=== PATIENT | female | born 1990 | race Caucasian/White ===

== ENCOUNTER 2019-12-24 10:10 | Outpatient (CLI) | payer OTHER, SELFPAY ==
[2019-12-24 10:32] VITALS: BMI 51.6
[2019-12-24 11:03] LABS: Hemoglobin 12.2 g/dL (12.0-15.0); Mean Corpuscular Hgb 28.9 pg (27.0-32.0); Mean Corpuscular Volume 87.7 fL (81-99); Mean Platelet Vol. 10.7 fl (6.2-12.0); Platelet Count 192 K/mm3 (150-450); RBC Distribution Width CV 15.6 % (11.6-14.6); RBC Distribution Width SD 48.3 fl (35.1-43.9); Red Blood Count 4.22 M/mm3 (4.2-5.4); White Blood Count 10.5 K/mm3 (4.4-11.0)
[2019-12-24 11:13] LABS: Protein, Urine (Random) 9.8 mg/dL (<11.9); Protein:Creat Ratio 274 mg/g CRE (0-200)
[2019-12-24 11:14] LABS: AST(SGOT) 13 U/L (15-37); Alanine Aminotransfer ALT/SGPT 17 U/L (13-56); Creatinine, Serum 0.67 mg/dL (0.55-1.02); EST Glomerular Filtration Rate 110 mL/min (>60); Est Glom Filt Rate - Afr Amer 133 mL/min (>60); Estimated Creatinine Clearance 137.23 ml/min; Uric Acid 5.3 mg/dL (2.6-6.0)
[2019-12-24] MEDS: Betamethasone/Betamethasone 30 MG/5 ML Vial 12 MG IM (12:10)
--- NOTE | 2020-01-02 16:50 | OB.TRI.NOTE ---
History of Present Illness Date of Service: 12/25/19 Was patient seen by the physician?: No Reason For Visit: R/O PHI Date of Service: 12/25/19 Gestational age: 35 weeks Allergies No Known Allergies Allergy (Verified 12/24/19 11:06) - Pertinent Past Medical History Medical History: Past Medical History (Last Updated 12/26/19 @ 07:[address] Parisa Guerra MD) History of asthma Surgical History: Past Surgical History (Last Updated 12/26/19 @ 07:[address] Parisa Guerra MD) H/O endoscopy Laboratory Studies: Laboratory Tests 12/24/19 12/24/19 12/24/19 Range/Units 10:55 10:55 10:55 WBC 10.5 (4.4-11.0) K/mm3 RBC 4.22 (4.2-5.4) M/mm3 Hgb 12.2 (12.0-15.0) g/dL Hct 37.0 (37-47) % MCV 87.7 (81-99) fL MCH 28.9 (27.0-32.0) pg MCHC 33.0 (32-36) g/dL RDW Std Deviation 48.3 H (35.1-43.9) fl RDW Coeff of Christine 15.6 H (11.6-14.6) % Plt Count 192 (150-450) K/mm3 MPV 10.7 (6.2-12.0) fl Creatinine 0.67 (0.55-1.02) mg/dL Estim Creat Clear Calc 137.23 ml/min Est GFR (MDRD) Af Amer 133 (>60) mL/min Est GFR (MDRD) Non-Af 110 (>60) mL/min Uric Acid 5.3 (2.6-6.0) mg/dL AST 13 L (15-37) U/L ALT 17 (13-56) U/L U Random Total Protein 9.8 (<11.9) mg/dL Urine Creatinine 35.80 (NO RANGE EST.) mg/dL Protein/Creatinin Ratio 274 H (0-200) mg/g CRE NST - FHR Rate Baby A Baseline: normal Variability:: Moderate Accelerations:: 15 x 15 Decelerations:: None NST Reactive:: Yes, Appropriate for gestational age FHR Category:: Category I Uterine Activity:: no regular ctxs - FHR Rate Baby B Baseline: normal Variability:: Moderate Accelerations:: 15 x 15 Decelerations:: None NST Reactive:: Yes, Appropriate for gestational age FHR Category:: Category I Uterine Activity:: no regular ctxs Impression/Plan 35 week, dichorionic/diamniotic twins, gestational hypertensiobn NST reactive x 2 no evidence of preeclampsia f/u in office tomorrow for second betamethasone injection
== END 2019-12-24 12:10 | disposition home or self-care (01) ==
LOC: WPOUT 10:21 → OBT 10:21
PROVIDERS: Referring Provider Obstetrics & Gynecology; Visit Provider Obstetrics & Gynecology
DX: O13.3 Gestational [pregnancy-induced] hypertension without significant proteinuria, third trimester (principal); O30.043 Twin pregnancy, dichorionic/diamniotic, third trimester; Z3A.35 35 weeks gestation of pregnancy
CPT/HCPCS: 36415; 59025; 59050; 82565; 82570; 84156; 84450; 84460; 84550; 85027; 96372; 99218; G0378; J0702

== ENCOUNTER 2019-12-26 07:30 | Inpatient (IN) | payer OTHER, SELFPAY ==
[2019-12-26] VITALS (81 sets, daily range): BP systolic 96–174; BP diastolic 51–99; PULSE 81–115; RESP 16–20; TEMP 36.4–37.6; O2SAT 91–100; BMI 51.9
--- NOTE | 2019-12-26 07:51 | HP.PCM_ITS ---
History Date of Admission: 12/26/19 Final GISSELLE: 02/01/20 Gestational age: 34 Weeks and 5 Days History of this : This is a 29 year-old, G [], P [], at weeks gestational age. Medical History: Medical History (Last Updated 12/26/19 @ 07:[address] Parisa Guerra MD) History of asthma Z87.09 Surgical History: Surgical History (Last Updated 12/26/19 @ 07:[address] Parisa Guerra MD) H/O endoscopy Z98.890 Allergies No Known Allergies Allergy (Verified 12/24/19 11:06) Home Medications: Home Medications Aspirin [Aspir 81] 81 mg PO DAILY 12/24/19 Esomeprazole Mag Trihydrate [Nexium] 1 tab PO DAILY 12/24/19 Ferrous Sulfate [Iron] 325 mg PO DAILY 12/24/19 Ondansetron HCl [Zofran] 4 mg PO PRN PRN 12/24/19 Vit,Calc76/Iron/Folic [Pnv 29-1 Tablet] 1 ea PO DAILY 12/24/19 Smoking Status: Never smoker Alcohol: None Number of Fetus(es): 2 History Past Pregnancies: Past Pregnancies Delivery Date Name GA/ Weeks Outcome Route Wt Infant Sex Labor Length Anesthesia Delivery Location Provider FOB Labs: See [facility] Physical Exam Vitals: Vital Signs Temp Pulse BP Pulse Ox 99.6 F H 112 H 142/84 H 96 12/26/19 07:21 12/26/19 07:46 12/26/19 07:27 12/26/19 07:46 General: Alert, Oriented x3 Abdomen: Soft, Non Tender, Non-Distended, Gravid Neurological: Cranial nerves II-XII grossly intact PROCESS EXCELLENCE MANAGER: Normal external genitalia Estimated gestational size: Appropriate for gestational size Presentation: Cephalic Cervix Dilation (cm): 0 Station: -3 Effacement (%): 50 Assessment/Plan This is a 29 year-old, G1, P0, at 34&5 weeks gestational age. Admit to L&D Severe preE - BP's are severe range. IV labetalol ordered. Start magnesium sulfate. Discussed R/B/A and will proceed with induction. PreE labs ordered. Twin - TAUS confirms vtx/vtx. Counseled on R/B/A of MOD and patient wishes to proceed with induction for vaginal delivery. FWB - s/p BMZx2. FHT's reassuring but not tracing well. COVID testing pending. EFW - based on 12/23 US A = 5lbs and B = 6-11, patient with adequate pelvis Pain - plan for epidural GBS unknown - check rapid GBS Routine care
[2019-12-26] MEDS: Lactated Ringers 1,000 ML 50 ML IV (07:55)
[2019-12-26] MEDS: Magnesium Sulfate 4gm/100mL 4 GM/100 ML IV.SOLN. IV (08:01)
[2019-12-26 08:13] LABS: Hemoglobin 11.7 g/dL (12.0-15.0); Mean Corp Hgb Conc 32.5 g/dL (32-36); Mean Corpuscular Hgb 28.8 pg (27.0-32.0); Mean Corpuscular Volume 88.7 fL (81-99); Mean Platelet Vol. 11.1 fl (6.2-12.0); Platelet Count 220 K/mm3 (150-450); RBC Distribution Width CV 15.2 % (11.6-14.6); RBC Distribution Width SD 48.9 fl (35.1-43.9); Red Blood Count 4.06 M/mm3 (4.2-5.4); White Blood Count 16.4 K/mm3 (4.4-11.0)
[2019-12-26 08:18] LABS: Protein, Urine (Random) 28.4 mg/dL (<11.9); Protein:Creat Ratio 363 mg/g CRE (0-200)
[2019-12-26 08:20] LABS: AST(SGOT) 15 U/L (15-37); Alanine Aminotransfer ALT/SGPT 19 U/L (13-56); EST Glomerular Filtration Rate 104 mL/min (>60); Est Glom Filt Rate - Afr Amer 126 mL/min (>60); Estimated Creatinine Clearance 131.35 ml/min; Uric Acid 6.1 mg/dL (2.6-6.0)
[2019-12-26] MEDS: Magnesium Sulfate 20 GM/500 ML BAG IV ×2 (08:28→16:55)
[2019-12-26 08:45] LABS: Prothrombin Time (Protime)PT. 12.8 SECONDS (11.7-14.9)
[2019-12-26 08:46] LABS: Partial Thromboplast Time 23.8 Seconds (24.1-36.2)
[2019-12-26 09:15] LABS: Probe Check PASS; Specimen Processing Control PASS
[2019-12-26] MEDS: Labetalol 20 MG/4 ML Vial IV (10:30)
[2019-12-26 10:32] LABS: Group B Strep DNA By PCR POSITIVE (Negative); Probe Check PASS
[2019-12-26] MEDS: Sodium Citrate/Citric Acid 30 ML UDC PO (12:00)
--- NOTE | 2019-12-26 13:56 | PCM.PN.BLA ---
Progress Note Delay entry. Unable to trace baby A with heart rate tracing given patient's body habitus and obesity. Unable to start induction with Cytotec given inability to assess a continuous tracing of baby A. Cervix is closed thick and high, and unable to place Barakat. Discussed risk, benefits, alternatives to with the patient. Recommended a section for preeclampsia with severe features, and inability to trace baby A given patient's obesity. Patient consents to a and desires to proceed. STROKE Vital Signs/Narrative: Vital Signs Temp Pulse Resp BP Pulse Ox 12/26/19 11:48 106 H 99 12/26/19 11:43 104 H 99 12/26/19 11:38 101 H 98 12/26/19 11:33 106 H 100 12/26/19 11:28 102 H 164/85 H 97 12/26/19 11:26 104 H 20 H 164/85 H 99 12/26/19 11:05 100 98 12/26/19 11:00 98 98 12/26/19 10:55 100 98 12/26/19 10:50 99 97 12/26/19 10:47 100 144/76 H 12/26/19 10:45 97 97 12/26/19 10:40 99 97 12/26/19 10:35 98 97 12/26/19 10:30 111 H 173/86 H 98 12/26/19 10:29 94 12/26/19 10:24 102 H 96 12/26/19 10:19 101 H 98 12/26/19 10:14 103 H 98 12/26/19 10:11 97.5 F L 101 H 20 H 170/89 H 99 12/26/19 10:10 101 H 170/89 H 12/26/19 10:09 98 12/26/19 10:07 110 H 91 12/26/19 10:04 98 97 12/26/19 09:59 97 98
--- NOTE | 2019-12-26 13:57 | PCM.OPRPT ---
Problem List (1) 34 weeks gestation of Status: Acute (2) Twin Status: Acute (3) Pre-eclampsia, severe Status: Acute (4) Obesity affecting Status: Acute (5) Gestational hypertension Status: Acute Report of Operation Date of Procedure: 12/26/19 Pre-Operative Diagnosis: 34 week gestation, di/di twin , pre-eclampsia with severe featuers, obesity Post-Operative Diagnosis: As above Surgery/Procedure Performed:: PLTCS via pfannenstiel incision Description of Surgical Findings:: Normal appearing uterus, bilateral tubes, bilateral ovaries. Clear fluid x 2. Normal appearing placenta and three-vessel cords. Viable male infants both in cephalic presentation. Type of Anesthesia:: Spinal Special Medications: None Specimen's removed: Placenta Drains: Barakat Estimated Blood Loss (mL): 1,500 Fluids Replaced: 1,500 Description of Procedure: Patient was taken to the operating room where spinal anesthesia was found to be adequate. She was prepped and draped in the dorsal position with a leftward tilt. A Pfannenstiel skin incision was made with a scalpel and this was carried down to the underlying layer of fascia. The fascia was incised in the midline. The fascia was extended laterally using Hernández scissors. The fascia was dissected off of the rectus muscles with a combination of sharp and blunt dissection. The rectus muscles were in the midline. The peritoneum was entered bluntly and extended bluntly with good visualization of the bladder. A bladder flap was created. A low transverse incision was made on the uterus with a scalpel. Both baby A and B were ruptured for clear fluid. Baby A was noted to be in cephalic presentation. Baby A was delivered without any force or delay. A true knot was noted in the cord. The cord was clamped and cut immediately and the infant was handed off to the nursery staff. Baby B was then noted to be in cephalic presentation. Baby B was delivered without any force or delay. The cord was clamped and cut immediately and the infant was handed off to the nursery staff. Placenta was removed with manual extraction. The uterus was cleared of all clot and debris. The uterus was closed in a running locked fashion with Vicryl. A second imbricating layer was performed with Vicryl. Peg was placed over the uterine incision. The uterine incision was noted to be hemostatic. The peritoneum was closed in a running fashion with Vicryl. The fascia was closed with PDS in a running fashion. The subcutaneous space was irrigated and made hemostatic with cautery. Peg was placed in the subcutaneous space. Subcutaneous space was reapproximated using Vicryl. The skin was closed in a subcuticular fashion. Steri-Strips and a dressing were placed. Instrument, sponge, needle counts were correct. The patient was taken to the recovery room in stable condition. Grafts/Implants Used: None - Complications None - Admit VTE Documentation VTE Present on Admission: No VTE Mechan Device Prophylaxis: SCD's Delivery Classification: Scheduled Final GISSELLE: 02/01/20 Gestational age: 34 Weeks and 5 Days Amniotic Membrane Rupture Type: Artificial Amniotic Fluid Description: Clear Drain: Barakat to straight drain Cord Entanglement: None Cord Vessel Description: 3 Vessels Infant Gender: Male Antibiotic Given: Ancef 3 grams IV x1 Pt instructed on risks of surgery: Bleeding, Infection, Need for Future C-Sections, Injury to surrounding structure(s) including bowel and bladder - Admit VTE Documentation VTE Present on Admission: No VTE Mechan Device Prophylaxis: SCD's VTE Pharm Prophylaxis ordered?: Yes
[2019-12-26] MEDS: Oxytocin 30 units/NS 500 ml 30 UNITS/500 ML IV.SOLN 167 UNITS IV (14:00)
[2019-12-26] MEDS: Labetalol 100 MG Tablet PO (14:45)
[2019-12-26] MEDS: Acetaminophen 500 MG Tablet 1000 MG PO ×2 (15:37→21:37)
--- NOTE | 2019-12-26 16:31 | NURSING ---
measured EBL during recovery 350- dr trejo made aware; pt oob up to wheelchair- pt gait steady- pt into SCN to see infants.
[2019-12-26] MEDS: Lactated Ringers 1,000 ML 100 ML IV (16:47)
[2019-12-26] MEDS: oxyCODONE 5 MG Tablet PO ×2 (16:48→21:37)
[2019-12-26] MEDS: Ketorolac 30 MG/ML Syringe IV (19:52)
[2019-12-26] MEDS: Labetalol 200 MG Tablet PO (21:37)
[2019-12-26] MEDS: Ondansetron 4 MG/2 ML Vial IV (21:37)
[2019-12-27] VITALS (16 sets, daily range): BP systolic 113–150; BP diastolic 64–94; PULSE 81–97; RESP 16–20; TEMP 36.3–37; O2SAT 96–99
[2019-12-27] MEDS: Enoxaparin 40 MG/0.4 ML Syringe SC ×3 (01:06→21:59)
[2019-12-27] MEDS: Ketorolac 30 MG/ML Syringe IV ×3 (01:06→13:27)
[2019-12-27] MEDS: Pantoprazole Sodium 20 MG Tablet PO ×2 (01:06→11:58)
[2019-12-27] MEDS: Lactated Ringers 1,000 ML 100 ML IV (02:45)
[2019-12-27] MEDS: oxyCODONE 5 MG Tablet PO ×4 (02:45→18:25)
[2019-12-27] MEDS: Magnesium Sulfate 20 GM/500 ML BAG IV (02:46)
[2019-12-27] MEDS: Acetaminophen 500 MG Tablet 1000 MG PO ×4 (03:29→21:59)
[2019-12-27 05:33] LABS: Hematocrit 28.5 % (37-47); Hemoglobin 9.1 g/dL (12.0-15.0); Mean Corp Hgb Conc 31.9 g/dL (32-36); Mean Corpuscular Hgb 29.1 pg (27.0-32.0); Mean Corpuscular Volume 91.1 fL (81-99); Mean Platelet Vol. 10.8 fl (6.2-12.0); Platelet Count 202 K/mm3 (150-450); RBC Distribution Width CV 15.5 % (11.6-14.6); RBC Distribution Width SD 50.7 fl (35.1-43.9); Red Blood Count 3.13 M/mm3 (4.2-5.4); White Blood Count 15.9 K/mm3 (4.4-11.0)
[2019-12-27 05:53] LABS: ALB/GLOB Ratio 0.6 RATIO (0.9-2.4); AST(SGOT) 14 U/L (15-37); Alanine Aminotransfer ALT/SGPT 17 U/L (13-56); Albumin, Serum 2.1 g/dL (3.2-5.0); Alkaline Phosphatase 111 U/L (45-117); Anion Gap 6 (5-15); BUN 15 mg/dL (7-18); BUN/Creat Ratio 19.3 RATIO (10-20); Chloride 108 mmol/L (98-107); Creatinine, Serum 0.78 mg/dL (0.55-1.02); EST Glomerular Filtration Rate 92 mL/min (>60); Est Glom Filt Rate - Afr Amer 112 mL/min (>60); Estimated Creatinine Clearance 117.87 ml/min; Globulin 3.3 g/dL (2.2-4.2); Glucose 113 mg/dL (74-106); Potassium 4.1 mmol/L (3.5-5.1); Protein, Total 5.4 g/dL (6.4-8.2); Sodium Level 137 mmol/L (136-145)
[2019-12-27] MEDS: 0.9% Saline Lock 10 ML Syringe IV ×3 (07:38→21:59)
[2019-12-27] MEDS: Senna/Docusate Sodium 1 Tablet PO (08:40)
[2019-12-27] MEDS: Labetalol 200 MG Tablet PO ×2 (10:14→21:59)
--- NOTE | 2019-12-27 10:52 | PCM.PN.OB ---
Patient Problems: Active and Suspected Problems (Last Updated 12/26/19 @ 07:[address] Parisa Guerra MD) 34 weeks gestation of (Acute) Twin (Acute) Pre-eclampsia, severe (Acute) Obesity affecting (Acute) Gestational hypertension (Acute) Subjective: Patient denies headache or visual changes. Pain well controlled. No nausea or vomiting. Ambulating. - Physical Exam Vitals/I&O's: Vital Signs Temp Pulse Resp BP Pulse Ox 97.4 F L 92 20 H 150/90 H 99 12/27/19 07:30 12/27/19 10:40 12/27/19 10:40 12/27/19 10:40 12/27/19 10:40 Oxygen Delivery Method Room Air Weight: 168.827 kg Body Mass Index (BMI) 51.9 Intake and Output for Last 24 Hours 12/25/19 12/26/19 12/27/19 23:59 23:59 23:59 Intake Total 5224.20 / 5224.20 3266.67 / 3266.67 Output Total 1420 / 1420 1700 / 1700 Balance 3804.20 / 3804.20 1566.67 / 1566.67 General: Alert, Cooperative, No apparent distress Abdomen: Soft, Non-Distended, Obese - Large overlying pannus, Tender - Mildly Extremities: Edema - 2+ Skin: Incision - Her bandage is clean dry and intact Laboratory Results 12/26/19 07:55: Blood Type O POSITIVE, Antibody Screen NEGATIVE 12/27/19 05:20: WBC 15.9 H, RBC 3.13 L, Hgb 9.1 L, Hct 28.5 L, MCV 91.1, MCH 29.1, MCHC 31.9 L, RDW Std Deviation 50.7 H, RDW Coeff of Christine 15.5 H, Plt Count 202, MPV 10.8 12/27/19 05:20: Sodium 137, Potassium 4.1, Chloride 108 H, Carbon Dioxide 23.0, Anion Gap 6, BUN 15, Creatinine 0.78, Estim Creat Clear Calc 117.87, Est GFR (MDRD) Af Amer 112, Est GFR (MDRD) Non-Af 92, BUN/Creatinine Ratio 19.3, Glucose 113 H, Calcium 8.0 L, Total Bilirubin 0.20, AST 14 L, ALT 17, Alkaline Phosphatase 111, Total Protein 5.4 L, Albumin 2.1 L, Globulin 3.3, Albumin/Globulin Ratio 0.6 L Current Medications Acetaminophen (Tylenol) 1,000 mg PO Q6 [facility] Last Admin: 12/27/19 10:14 Dose: 1,000 mg Documented by: Bisacodyl (Dulcolax) 10 mg RECTAL UD PRN PRN Reason: If no BM Enoxaparin Sodium (Lovenox) 40 mg SC BID [facility] Last Admin: 12/27/19 01:06 Dose: 40 mg Documented by: Hydrocortisone (Hytone) 1 applic TOPICAL TID PRN PRN; Protocol PRN Reason: Discomfort Calcium Gluconate 1 gm/ N/A 10 mls @ 2 mls/min IV X1 PRN PRN Reason: Magnesium Toxicity Magnesium Sulfate (20gm/500ml) 20 gm in 500 mls @ 50 mls/hr IV .Q10H [facility]; Protocol Stop: 12/27/19 12:50 Last Infusion: 12/27/19 10:40 Dose: 2 gm/hr, 50 mls/hr Documented by: Lactated Ringer's () 1,000 mls @ 100 mls/hr IV .Q10H [facility] Last Infusion: 12/27/19 05:25 Dose: 50 mls/hr Documented by: Naloxone HCl 4 mg/ Dextrose 504 mls @ 0 mls/hr IV .Q0M PRN; Protocol PRN Reason: Respiratory depression Ibuprofen (Motrin) 600 mg PO Q6H [facility] Ketorolac Tromethamine (Toradol (Bkc)) 30 mg IV Q6H [facility] Stop: 12/27/19 13:31 Last Admin: 12/27/19 07:38 Dose: 30 mg Documented by: Labetalol HCl (Trandate) 200 mg PO BID [facility] Last Admin: 12/27/19 10:14 Dose: 200 mg Documented by: Methylergonovine Maleate (Methergine) 0.2 mg IM X1 PRN PRN Reason: Uterine Atony Midazolam HCl (Versed) 2 mg IV X1 PRN PRN Reason: Seizure Activity Naloxone HCl (Narcan) 0.02 mg IV Q1M PRN PRN Reason: RR <10 and pt unresponsive Ondansetron HCl (Zofran) 4 mg IV Q4H PRN PRN PRN Reason: Nausea Last Admin: 12/26/19 21:37 Dose: 4 mg Documented by: Oxycodone HCl (Oxyir) 5 - 10 mg PO Q4H PRN PRN PRN Reason: Pain Score 4-10/10 Last Admin: 12/27/19 08:40 Dose: 5 mg Documented by: Pantoprazole Sodium (Protonix) 20 mg PO DAILY [facility] Last Admin: 12/27/19 01:06 Dose: 20 mg Documented by: Prochlorperazine Edisylate (Compazine Iv) 10 mg IV Q6H PRN PRN PRN Reason: NAUSEA Senna/Docusate Sodium (Senokot-S, Olena-Colace) 1 - 2 tablet PO DAILY [facility] Last Admin: 12/27/19 08:40 Dose: 2 tablet Documented by: Simethicone (Mylicon) 80 mg PO [facility] PRN PRN Reason: Indigestion/stomach pain Sodium Chloride () 5 - 15 ml IV UD PRN PRN Reason: SALINE FLUSH Last Admin: 12/27/19 07:38 Dose: 10 ml Documented by: Medical Necessity - Tobacco Use Smoking Status: Former smoker Assessment/Plan All Active Problems (Last Updated 12/26/19 @ 07:[address] Parisa Guerra MD) 34 weeks gestation of (Acute) Twin (Acute) Pre-eclampsia, severe (Acute) Obesity affecting (Acute) Gestational hypertension (Acute) Postoperative day #1 status post primary section for twins, dichorionic diamniotic. Preeclampsia with severe features. Dates are in the special care nursery and doing well overall. Patient is doing well. Blood pressures have been controlled with current medications. Will finish 24 hours of magnesium. Otherwise routine postoperative care.
[2019-12-27] MEDS: Ibuprofen 600 MG Tablet PO (19:42)
[2019-12-27] MEDS: DiphenhydrAMINE 25 MG Capsule PO (23:04)
[2019-12-28] VITALS (9 sets, daily range): BP systolic 120–159; BP diastolic 64–84; PULSE 91–120; RESP 16–20; TEMP 36.3–37.3; O2SAT 98–100
--- NOTE | 2019-12-28 00:06 | NURSING ---
RN in room for hourly rounding. Patient states that she is feeling very anxious, especially when she lays flat. Also states she has chest heaviness and sweating when lying flat. Patient was tearful and stated my anxiety is making me afraid to fall asleep. Vital signs assessed and all WNL, lung sounds clear to auscultation bilaterally, patient performed incentive spirometry, and bleeding was small in amount, fundus 1 below. Called charge nurse Yamilex Snow RN to room for assessment. Results of assessment came back WNL. Patient states she has had increased anxiety over the last 2 weeks before delivery and that she briefly took a medication for anxiety, but felt that it didn't help. Stated she had no history of panic attacks. Stated she would take a medication if it was available to her. Called Manjeet BETANCUR and reviewed assessment. Manjeet BETANCUR ordered 5mg of Ambien to help her sleep and help with anxiety. This RN went to take Ambien into room and patient refused because, I don't want to take a sleeping pill. I'm just going to try again to sleep on my own. AOrr RN
[2019-12-28] MEDS: Ibuprofen 600 MG Tablet PO ×4 (01:36→19:34)
[2019-12-28] MEDS: Acetaminophen 500 MG Tablet 1000 MG PO ×4 (04:03→22:00)
[2019-12-28] MEDS: oxyCODONE 5 MG Tablet PO (07:46)
--- NOTE | 2019-12-28 08:53 | PN.OBGYN_ITS ---
Patient Problems: Active and Suspected Problems (Last Updated 12/26/19 @ 07:[address] Parisa Guerra MD) 34 weeks gestation of (Acute) Twin (Acute) Pre-eclampsia, severe (Acute) Obesity affecting (Acute) Gestational hypertension (Acute) Subjective: Pain is well controlled. Patient is ambulating without difficulty. No headache or visual disturbances. Average lochia. Patient has had flatus and is tolerating regular diet. No bowel movement yet. - Physical Exam Vitals/I&O's: Vital Signs Temp Pulse Resp BP Pulse Ox 97.3 F L 97 20 H 142/73 H 98 12/28/19 07:50 12/28/19 07:50 12/28/19 07:50 12/28/19 07:50 12/28/19 07:50 Oxygen Delivery Method Room Air Weight: 168.827 kg Body Mass Index (BMI) 51.9 Intake and Output for Last 24 Hours 12/26/19 12/27/19 12/28/19 23:59 23:59 23:59 Intake Total 5224.20 / 5224.20 3873.34 / 3873.34 Output Total 1420 / 1420 3100 / 3100 Balance 3804.20 / 3804.20 773.34 / 773.34 General: Alert, Cooperative, No apparent distress Current Medications Acetaminophen (Tylenol) 1,000 mg PO Q6H [facility] Last Admin: 12/28/19 04:03 Dose: 1,000 mg Documented by: Bisacodyl (Dulcolax) 10 mg RECTAL UD PRN PRN Reason: If no BM Enoxaparin Sodium (Lovenox) 40 mg SC BID [facility] Last Admin: 12/27/19 21:59 Dose: 40 mg Documented by: Hydrocortisone (Hytone) 1 applic TOPICAL TID PRN PRN; Protocol PRN Reason: Discomfort Calcium Gluconate 1 gm/ N/A 10 mls @ 2 mls/min IV X1 PRN PRN Reason: Magnesium Toxicity Naloxone HCl 4 mg/ Dextrose 504 mls @ 0 mls/hr IV .Q0M PRN; Protocol PRN Reason: Respiratory depression Ibuprofen (Motrin) 600 mg PO Q6H [facility] Last Admin: 12/28/19 07:42 Dose: 600 mg Documented by: Labetalol HCl (Trandate) 200 mg PO BID [facility] Last Admin: 12/27/19 21:59 Dose: 200 mg Documented by: Methylergonovine Maleate (Methergine) 0.2 mg IM X1 PRN PRN Reason: Uterine Atony Midazolam HCl (Versed) 2 mg IV X1 PRN PRN Reason: Seizure Activity Naloxone HCl (Narcan) 0.02 mg IV Q1M PRN PRN Reason: RR <10 and pt unresponsive Ondansetron HCl (Zofran) 4 mg IV Q4H PRN PRN PRN Reason: Nausea Last Admin: 12/26/19 21:37 Dose: 4 mg Documented by: Oxycodone HCl (Oxyir) 5 - 10 mg PO Q4H PRN PRN PRN Reason: Pain Score 4-10/10 Last Admin: 12/28/19 07:46 Dose: 5 mg Documented by: Pantoprazole Sodium (Protonix) 20 mg PO DAILY [facility] Last Admin: 12/27/19 11:58 Dose: 20 mg Documented by: Prochlorperazine Edisylate (Compazine Iv) 10 mg IV Q6H PRN PRN PRN Reason: NAUSEA Senna/Docusate Sodium (Senokot-S, Olena-Colace) 1 - 2 tablet PO DAILY [facility] Last Admin: 12/27/19 08:40 Dose: 2 tablet Documented by: Simethicone (Mylicon) 80 mg PO HS PRN PRN Reason: Indigestion/stomach pain Last Admin: 12/27/19 19:45 Dose: 80 mg Documented by: Sodium Chloride () 5 - 15 ml IV UD PRN PRN Reason: SALINE FLUSH Last Admin: 12/27/19 21:59 Dose: 10 ml Documented by: Medical Necessity - Tobacco Use Smoking Status: Former smoker Assessment/Plan All Active Problems (Last Updated 12/26/19 @ 07:[address] Parisa Guerra MD) 34 weeks gestation of (Acute) Twin (Acute) Pre-eclampsia, severe (Acute) Obesity affecting (Acute) Gestational hypertension (Acute) Postoperative day #2 status post primary section for dichorionic diamniotic twins with unfavorable cervix, and preeclampsia severe features. Pressures are controlled with labetalol. Patient is doing well. Neonates are in special care nursery. Monitor patient's symptoms and blood pressures. Encouraged ambulation. Continue regular diet.
[2019-12-28] MEDS: Labetalol 200 MG Tablet PO ×2 (10:54→21:56)
[2019-12-28] MEDS: Enoxaparin 40 MG/0.4 ML Syringe SC ×2 (10:54→21:59)
[2019-12-28] MEDS: Senna/Docusate Sodium 1 Tablet PO (10:54)
[2019-12-28] MEDS: Pantoprazole Sodium 20 MG Tablet PO (10:55)
[2019-12-29] VITALS (7 sets, daily range): BP systolic 132–157; BP diastolic 65–92; PULSE 86–98; RESP 18; TEMP 36.4–36.9; O2SAT 98
[2019-12-29] MEDS: Ibuprofen 600 MG Tablet PO ×4 (01:35→18:59)
[2019-12-29] MEDS: Acetaminophen 500 MG Tablet 1000 MG PO ×3 (04:09→18:59)
[2019-12-29] MEDS: Labetalol 200 MG Tablet PO ×3 (06:03→21:44)
[2019-12-29] MEDS: Enoxaparin 40 MG/0.4 ML Syringe SC ×2 (10:44→22:58)
[2019-12-29] MEDS: Pantoprazole Sodium 20 MG Tablet PO (10:45)
[2019-12-29] MEDS: Senna/Docusate Sodium 1 Tablet PO (10:45)
--- NOTE | 2019-12-29 10:52 | PCM.PN.OB ---
Patient Problems: Active and Suspected Problems (Last Updated 12/26/19 @ 07:[address] Parisa Guerra MD) 34 weeks gestation of (Acute) Twin (Acute) Pre-eclampsia, severe (Acute) Obesity affecting (Acute) Gestational hypertension (Acute) Subjective: Pain is well controlled. No nausea or vomiting. Ambulating and tolerating regular diet. Positive bowel movement. Patient is tearful when I arrived in the room. States she is very anxious, waking up frequently because of her anxiety. Also feels very down and depressed. Somewhat overwhelmed. Does like she will do better at home where she has more family support. Has been struggling with anxiety over the past couple of months but does feel like it is worsened acutely. - Physical Exam Vitals/I&O's: Vital Signs Temp Pulse Resp BP Pulse Ox 97.5 F L 86 18 157/75 H 99 12/29/19 07:30 12/29/19 07:30 12/29/19 07:30 12/29/19 07:30 12/28/19 19:27 Oxygen Delivery Method Room Air Weight: 168.827 kg Body Mass Index (BMI) 51.9 Intake and Output for Last 24 Hours 12/27/19 12/28/19 12/29/19 23:59 23:59 23:59 Intake Total 3873.34 / 3873.34 Output Total 3100 / 3100 Balance 773.34 / 773.34 General: Alert, Cooperative, - - tearful Cardiovascular: Regular rate Abdomen: Soft, Tender - appropriately, - - pannus is large Extremities: Edema - 2+ Skin: Incision - bandage is clean, dry and intact Current Medications Acetaminophen (Tylenol) 1,000 mg PO Q6H [facility] Last Admin: 12/29/19 04:09 Dose: 1,000 mg Documented by: Bisacodyl (Dulcolax) 10 mg RECTAL UD PRN PRN Reason: If no BM Enoxaparin Sodium (Lovenox) 40 mg SC BID [facility] Last Admin: 12/29/19 10:44 Dose: 40 mg Documented by: Hydrocortisone (Hytone) 1 applic TOPICAL TID PRN PRN; Protocol PRN Reason: Discomfort Calcium Gluconate 1 gm/ N/A 10 mls @ 2 mls/min IV X1 PRN PRN Reason: Magnesium Toxicity Naloxone HCl 4 mg/ Dextrose 504 mls @ 0 mls/hr IV .Q0M PRN; Protocol PRN Reason: Respiratory depression Ibuprofen (Motrin) 600 mg PO Q6H [facility] Last Admin: 12/29/19 07:34 Dose: 600 mg Documented by: Labetalol HCl (Trandate) 200 mg PO TID [facility] Last Admin: 12/29/19 06:03 Dose: 200 mg Documented by: Methylergonovine Maleate (Methergine) 0.2 mg IM X1 PRN PRN Reason: Uterine Atony Midazolam HCl (Versed) 2 mg IV X1 PRN PRN Reason: Seizure Activity Naloxone HCl (Narcan) 0.02 mg IV Q1M PRN PRN Reason: RR <10 and pt unresponsive Ondansetron HCl (Zofran) 4 mg IV Q4H PRN PRN PRN Reason: Nausea Last Admin: 12/26/19 21:37 Dose: 4 mg Documented by: Oxycodone HCl (Oxyir) 5 - 10 mg PO Q4H PRN PRN PRN Reason: Pain Score 4-10/10 Last Admin: 12/28/19 07:46 Dose: 5 mg Documented by: Pantoprazole Sodium (Protonix) 20 mg PO DAILY [facility] Last Admin: 12/29/19 10:45 Dose: 20 mg Documented by: Prochlorperazine Edisylate (Compazine Iv) 10 mg IV Q6H PRN PRN PRN Reason: NAUSEA Senna/Docusate Sodium (Senokot-S, Olena-Colace) 1 - 2 tablet PO DAILY [facility] Last Admin: 12/29/19 10:45 Dose: 1 tablet Documented by: Simethicone (Mylicon) 80 mg PO [facility] PRN PRN Reason: Indigestion/stomach pain Last Admin: 12/28/19 16:44 Dose: 80 mg Documented by: Sodium Chloride () 5 - 15 ml IV UD PRN PRN Reason: SALINE FLUSH Last Admin: 12/27/19 21:59 Dose: 10 ml Documented by: Medical Necessity - Tobacco Use Smoking Status: Former smoker Assessment/Plan All Active Problems (Last Updated 12/26/19 @ 07:[address] Parisa Guerra MD) 34 weeks gestation of (Acute) Twin (Acute) Pre-eclampsia, severe (Acute) Obesity affecting (Acute) Gestational hypertension (Acute) POD#3 s/p primary c/s for di/di twins, preeclampsia w/ severe features anxiety and depression- start lexapro. will give ambien prn to help w/ sleep as well as patient is exhausted. supportive. Encouraged may need counseling as well neonates doing well in SCN monitor BP, may need to increase labetalol or add nifidipine
[2019-12-29] MEDS: Escitalopram Oxalate 10 MG Tablet PO (15:25)
[2019-12-29] MEDS: Zolpidem Tartrate 5 MG Tablet PO (22:59)
[2019-12-30] VITALS (7 sets, daily range): BP systolic 130–161; BP diastolic 66–91; PULSE 83–91; RESP 16–18; TEMP 36.7–37.2; O2SAT 95
[2019-12-30] MEDS: Ibuprofen 600 MG Tablet PO ×2 (01:30→07:41)
[2019-12-30] MEDS: Acetaminophen 500 MG Tablet 1000 MG PO ×2 (04:36→11:33)
[2019-12-30] MEDS: Labetalol 200 MG Tablet PO (06:04)
--- NOTE | 2019-12-30 09:36 | PN.OBGYN_ITS ---
Patient Problems: Active and Suspected Problems (Last Updated 12/26/19 @ 07:[address] Parisa Guerra MD) 34 weeks gestation of (Acute) Twin (Acute) Pre-eclampsia, severe (Acute) Obesity affecting (Acute) Gestational hypertension (Acute) Subjective: Pain well controlled, average lochia. Denies ALLEN/epigastric pain. - Physical Exam Vitals/I&O's: Vital Signs Temp Pulse Resp BP Pulse Ox 98.0 F 83 16 149/66 H 98 12/30/19 07:42 12/30/19 07:42 12/30/19 07:42 12/30/19 07:44 12/29/19 19:27 Oxygen Delivery Method Room Air Weight: 168.827 kg Body Mass Index (BMI) 51.9 General: Alert, Cooperative, No apparent distress Abdomen: Soft, Non-Distended, Obese - w/ large pannus Extremities: Edema - 2+ Skin: Incision - bandage is clean, dry and intact Neurological: Cranial nerves II-XII grossly intact Current Medications Acetaminophen (Tylenol) 1,000 mg PO Q6H [facility] Last Admin: 12/30/19 04:36 Dose: 1,000 mg Documented by: Bisacodyl (Dulcolax) 10 mg RECTAL UD PRN PRN Reason: If no BM Enoxaparin Sodium (Lovenox) 40 mg SC BID [facility] Last Admin: 12/29/19 22:58 Dose: 40 mg Documented by: Escitalopram Oxalate (Lexapro) 10 mg PO DAILY [facility] Last Admin: 12/29/19 15:25 Dose: 10 mg Documented by: Hydrocortisone (Hytone) 1 applic TOPICAL TID PRN PRN; Protocol PRN Reason: Discomfort Calcium Gluconate 1 gm/ N/A 10 mls @ 2 mls/min IV X1 PRN PRN Reason: Magnesium Toxicity Naloxone HCl 4 mg/ Dextrose 504 mls @ 0 mls/hr IV .Q0M PRN; Protocol PRN Reason: Respiratory depression Ibuprofen (Motrin) 600 mg PO Q6H [facility] Last Admin: 12/30/19 07:41 Dose: 600 mg Documented by: Labetalol HCl (Trandate) 200 mg PO TID [facility] Last Admin: 12/30/19 06:04 Dose: 200 mg Documented by: Methylergonovine Maleate (Methergine) 0.2 mg IM X1 PRN PRN Reason: Uterine Atony Midazolam HCl (Versed) 2 mg IV X1 PRN PRN Reason: Seizure Activity Naloxone HCl (Narcan) 0.02 mg IV Q1M PRN PRN Reason: RR <10 and pt unresponsive Ondansetron HCl (Zofran) 4 mg IV Q4H PRN PRN PRN Reason: Nausea Last Admin: 12/26/19 21:37 Dose: 4 mg Documented by: Oxycodone HCl (Oxyir) 5 - 10 mg PO Q4H PRN PRN PRN Reason: Pain Score 4-10/10 Last Admin: 12/28/19 07:46 Dose: 5 mg Documented by: Pantoprazole Sodium (Protonix) 20 mg PO DAILY [facility] Last Admin: 12/29/19 10:45 Dose: 20 mg Documented by: Prochlorperazine Edisylate (Compazine Iv) 10 mg IV Q6H PRN PRN PRN Reason: NAUSEA Senna/Docusate Sodium (Senokot-S, Olena-Colace) 1 - 2 tablet PO DAILY [facility] Last Admin: 12/29/19 10:45 Dose: 1 tablet Documented by: Simethicone (Mylicon) 80 mg PO PCHS PRN PRN Reason: Indigestion/stomach pain Last Admin: 12/28/19 16:44 Dose: 80 mg Documented by: Sodium Chloride () 5 - 15 ml IV UD PRN PRN Reason: SALINE FLUSH Last Admin: 12/27/19 21:59 Dose: 10 ml Documented by: Zolpidem Tartrate (Ambien (Generic)) 5 mg PO QHS PRN PRN PRN Reason: INSOMNIA Last Admin: 12/29/19 22:59 Dose: 5 mg Documented by: Medical Necessity - Tobacco Use Smoking Status: Former smoker Assessment/Plan All Active Problems (Last Updated 12/26/19 @ 07:[address] Parisa Guerra MD) 34 weeks gestation of (Acute) Twin (Acute) Pre-eclampsia, severe (Acute) Obesity affecting (Acute) Gestational hypertension (Acute) POD#4 s/p primary c/s for twins di/di twins, preeclampsia with severe features d/c home today cont. labetaolol f/u this week for BP and incision check call if any severe preeclampsia symptoms infants doing well in [facility]
--- NOTE | 2019-12-30 09:49 | DS.PCM_ITS ---
Discharge Date and Diagnosis - Problem List Patient Problems: Active and Suspected Problems (Last Updated 12/26/19 @ 07:[address] Parisa Guerra MD) 34 weeks gestation of (Acute) Twin (Acute) Pre-eclampsia, severe (Acute) Obesity affecting (Acute) Gestational hypertension (Acute) Date of Admission: 12/26/19 Date of Discharge: 12/30/19 - Primary Discharge Diagnosis Acute Problems: Active Problems (Last Updated 12/26/19 @ 07:[address] Parisa Guerra MD) 34 weeks gestation of (Acute) Twin (Acute) Pre-eclampsia, severe (Acute) Obesity affecting (Acute) Gestational hypertension (Acute) Hospital Course and Treatment Operations: - - primary LTCS via [facility] Procedures: None Summary of Care Provided: The patient is a 29 year old nulliparous female was admitted at 34 weeks gestation with preeclampsia with severe features. The hypertensive protocol was initiated. She was put on magnesium prophylaxis. The size of the patient's pannus, we are unable to adequately monitor baby A in order to initiate an induction. This along with her severe features, and an unfavorable cervix prohibiting rupture of membranes and placement of a scalp electrode made induction unreasonable. Patient was then consented for primary section. This was performed without difficulty. Patient had mild acute blood loss anemia appropriate for blood loss during surgery. By postoperative day #4 her blood pressures were stable and she was sent home on p.o. labetalol with routine instructions and prescriptions otherwise. She is to call for any symptoms of severe preeclampsia or any other concerns. Patient also had some significant anxiety before delivery this seems to be somewhat worse after delivery. She was started on Lexapro. She is to follow-up within 5 to 7 days for blood pressure check and incision check. [] Patient Problems: Active and Suspected Problems (Last Updated 12/26/19 @ 07:[address] Parisa Guerra MD) 34 weeks gestation of (Acute) Twin (Acute) Pre-eclampsia, severe (Acute) Obesity affecting (Acute) Gestational hypertension (Acute) - Physical Exam Vitals/I&O's: Vital Signs Temp Pulse Resp BP Pulse Ox 98.0 F 83 16 149/66 H 98 12/30/19 07:42 12/30/19 07:42 12/30/19 07:42 12/30/19 07:44 12/29/19 19:27 Oxygen Delivery Method Room Air Weight: 168.827 kg Body Mass Index (BMI) 51.9 Current Medications Acetaminophen (Tylenol) 1,000 mg PO Q6H [facility] Last Admin: 12/30/19 04:36 Dose: 1,000 mg Documented by: Bisacodyl (Dulcolax) 10 mg RECTAL UD PRN PRN Reason: If no BM Enoxaparin Sodium (Lovenox) 40 mg SC BID [facility] Last Admin: 12/29/19 22:58 Dose: 40 mg Documented by: Escitalopram Oxalate (Lexapro) 10 mg PO DAILY [facility] Last Admin: 12/29/19 15:25 Dose: 10 mg Documented by: Hydrocortisone (Hytone) 1 applic TOPICAL TID PRN PRN; Protocol PRN Reason: Discomfort Calcium Gluconate 1 gm/ N/A 10 mls @ 2 mls/min IV X1 PRN PRN Reason: Magnesium Toxicity Naloxone HCl 4 mg/ Dextrose 504 mls @ 0 mls/hr IV .Q0M PRN; Protocol PRN Reason: Respiratory depression Ibuprofen (Motrin) 600 mg PO Q6H [facility] Last Admin: 12/30/19 07:41 Dose: 600 mg Documented by: Labetalol HCl (Trandate) 200 mg PO TID [facility] Last Admin: 12/30/19 06:04 Dose: 200 mg Documented by: Methylergonovine Maleate (Methergine) 0.2 mg IM X1 PRN PRN Reason: Uterine Atony Midazolam HCl (Versed) 2 mg IV X1 PRN PRN Reason: Seizure Activity Naloxone HCl (Narcan) 0.02 mg IV Q1M PRN PRN Reason: RR <10 and pt unresponsive Ondansetron HCl (Zofran) 4 mg IV Q4H PRN PRN PRN Reason: Nausea Last Admin: 12/26/19 21:37 Dose: 4 mg Documented by: Oxycodone HCl (Oxyir) 5 - 10 mg PO Q4H PRN PRN PRN Reason: Pain Score 4-10/10 Last Admin: 12/28/19 07:46 Dose: 5 mg Documented by: Pantoprazole Sodium (Protonix) 20 mg PO DAILY [facility] Last Admin: 12/29/19 10:45 Dose: 20 mg Documented by: Prochlorperazine Edisylate (Compazine Iv) 10 mg IV Q6H PRN PRN PRN Reason: NAUSEA Senna/Docusate Sodium (Senokot-S, Olena-Colace) 1 - 2 tablet PO DAILY [facility] Last Admin: 12/29/19 10:45 Dose: 1 tablet Documented by: Simethicone (Mylicon) 80 mg PO PCHS PRN PRN Reason: Indigestion/stomach pain Last Admin: 12/28/19 16:44 Dose: 80 mg Documented by: Sodium Chloride () 5 - 15 ml IV UD PRN PRN Reason: SALINE FLUSH Last Admin: 12/27/19 21:59 Dose: 10 ml Documented by: Zolpidem Tartrate (Ambien (Generic)) 5 mg PO QHS PRN PRN PRN Reason: INSOMNIA Last Admin: 12/29/19 22:59 Dose: 5 mg Documented by: Home Medications: Medications to take at Discharge Vit,Calc76/Iron/Folic [Pnv 29-1 Tablet] 1 ea PO DAILY 12/24/19 Escitalopram Oxalate [Lexapro] 10 mg PO DAILY #30 tab 12/29/19 Ibuprofen [Motrin] 600 mg PO Q6H PRN #60 tab 12/29/19 Labetalol [Trandate (Beta Mariella)] 200 mg PO TID #90 tab 12/29/19 Oxycodone [Oxyir] 5 mg PO Q6H PRN PRN 7 Days #20 tab 12/29/19 Following Prescrptions Were Given to Patient: Escitalopram Oxalate [Lexapro] 10 mg PO DAILY #30 tab Transmission Status: Received by [facility] #[id number] Ibuprofen [Motrin] 600 mg PO Q6H PRN #60 tab PRN Reason: Pain Transmission Status: Received by [facility] #[id number] Oxycodone [Oxyir] 5 mg PO Q6H PRN PRN 7 Days #20 tab PRN Reason: severe pain Transmission Status: Received by [facility] #[id number] Labetalol [Trandate (Beta Mariella)] 200 mg PO TID #90 tab Transmission Status: Received by [facility] #[id number] Primary Care Physician: Care Physician,No Primary [Primary Care Provider] - Medical Necessity - Tobacco Use Smoking Status: Former smoker Meaningful Use Info Meaningful Use Diagnoses (Choose all that apply): None applicable
--- NOTE | 2019-12-30 09:54 | DCINST_ITS ---
Discharge Diet: No Restrictions Discharge Activity: Return to Normal Activity, May Not Drive - for 2 weeks, May not drive while taking narcotic pain medications., May Shower, May Take a Tub Bath - in 7 days. May resume sexual activity in: 4-6 weeks Lifting Restrictions: 20 pounds Additional Activity Instructions:: Nothing in the vagina for 4-6 weeks. You may return to work/school in 6 weeks. Call your doctor if your incision/area has: Continuous Slow Oozing, Sudden Increased Bleeding, Increased Pain/ Swelling, Increased Redness, Foul Smelling Discharge Call your doctor if you observe: Fever of 101 or Higher, Using more than one pad per hour - for 2 hours Suture Line Care: Avoid Pulling/Pushing, Avoid Pinching/Bending Cleanse incision/area with: Keep Dressing Clean & Dry Additional Instructions: If you experience any of the following, contact your healthcare provider. * Bleeding that soaks a pad every hour for 2 hours * Fever 100.4 or higher * Unrelieved incision or abdominal pain * Swelling, redness, discharge or bleeding from your incision or episiotomy site * Your incision begins to separate * Problems urinating (including inability to urinate or burning while urinating). * Visual changes * Severe headache * Flu-like symptoms * Pain or redness in one of both of your breasts * Pain, warmth, tenderness or swelling in your legs, especially the calf area * Frequent nausea and vomiting * Symptoms of depression or anxiety If you experience any of the following, call 911 or go to the nearest Emergency Room. * Chest pain * Problems breathing * Seizure activity * Partial or complete paralysis of a body part, slurred speech, weakness or drooping of the face, or a sudden inability to walk or hold your balance Allergies/Adverse Reactions: Allergies No Known Allergies Allergy (Verified 12/24/19 11:06) Medications to take at Discharge Vit,Calc76/Iron/Folic [Pnv 29-1 Tablet] 1 ea PO DAILY 12/24/19 Escitalopram Oxalate [Lexapro] 10 mg PO DAILY #30 tab 12/29/19 Ibuprofen [Motrin] 600 mg PO Q6H PRN #60 tab 12/29/19 Labetalol [Trandate (Beta Mariella)] 200 mg PO TID #90 tab 12/29/19 Oxycodone [Oxyir] 5 mg PO Q6H PRN PRN 7 Days #20 tab 12/29/19 The following prescriptions were given: Escitalopram Oxalate [Lexapro] 10 mg PO DAILY #30 tab Transmission Status: Received by [facility] #[id number] Ibuprofen [Motrin] 600 mg PO Q6H PRN #60 tab PRN Reason: Pain Transmission Status: Received by [facility] #[id number] Oxycodone [Oxyir] 5 mg PO Q6H PRN PRN 7 Days #20 tab PRN Reason: severe pain Transmission Status: Received by [facility] #[id number] Labetalol [Trandate (Beta Mariella)] 200 mg PO TID #90 tab Transmission Status: Received by [facility] #[id number] Follow-Up: Call to make an appointment with your doctor for an incision check in 1-2 weeks. You will also need a 6 week post- follow up appointment. Test results from this visit will be discussed in further detail at your follow- up appointment, if applicable. Please Follow Up With: Mima Mascorro MD - Call to make an appointment for an incision check in 1-2 [phone] When: You will need a post check in 6 weeks. Primary Care Physician: Care Physician,No Primary [Primary Care Provider] -
[2019-12-30] MEDS: Enoxaparin 40 MG/0.4 ML Syringe SC (11:32)
[2019-12-30] MEDS: Senna/Docusate Sodium 1 Tablet PO (11:34)
[2019-12-30] MEDS: Escitalopram Oxalate 10 MG Tablet PO (11:34)
--- NOTE | 2019-12-30 12:43 | NURSING ---
this nurse spoke to regarding blood pressures at time of discharge. gave a new order for trandate 300mg po TID. I discussed this with the pt and her pt states she understands discharge inst and the new order.
[2019-12-30] MEDS: Labetalol 200 MG Tablet 300 MG PO (13:21)
[2019-12-30] MEDS: Pantoprazole Sodium 20 MG Tablet PO (13:21)
== END 2019-12-30 13:00 | disposition home or self-care (01) | DRG 788 ==
LOC: WPOUT 07:34 → WP 07:34
PROVIDERS: Obstetrics & Gynecology; Admitting Provider Obstetrics & Gynecology; Referring Provider Obstetrics & Gynecology; Visit Provider Obstetrics & Gynecology
DX: O69.2XX1 Labor and delivery complicated by other cord entanglement, with compression, fetus 1 (principal); O14.14 Severe pre-eclampsia complicating childbirth; O99.214 Obesity complicating childbirth; E66.9 Obesity, unspecified; O99.344 Other mental disorders complicating childbirth; Z3A.34 34 weeks gestation of pregnancy; Z37.2 Twins, both liveborn; O30.043 Twin pregnancy, dichorionic/diamniotic, third trimester
CPT/HCPCS: 59025; 59050; 80053; 82565; 82570; 84156; 84450; 84460; 84550; 85027; 85610; 85730; 86850; 86900; 86901; 87635; 87653; 99218; G2023; J7120; A4216; G0378; J2405; U0003

== ENCOUNTER 2020-04-04 12:13 | Day surgery (SDC) | payer OTHER, SELFPAY ==
[2019-12-26 07:27] VITALS: BMI 51.9
[2020-04-04] VITALS (10 sets, daily range): BP systolic 115–154; BP diastolic 68–95; PULSE 82–108; RESP 14–18; TEMP 35.9–37.1; O2SAT 91–100; BMI 44.7; BMI 45.6
--- NOTE | 2020-04-04 12:43 | US_ITS ---
STUDY: ABDOMINAL ULTRASOUND - RIGHT UPPER QUADRANT REASON FOR VISIT: Female, 29 years old NAUSEA, VOMITING WITHIN 15 MINS AFTER EATING X 4 WEEKS TECHNIQUE: Ultrasound evaluation of the right upper quadrant was performed with real-time and static olson-scale imaging. TECHNICAL QUALITY: Adequate. COMPARISON: None. FINDINGS: Liver: The liver is enlarged and measures 22.2 cm. There is increased echogenicity consistent with fatty infiltration. The bile ducts are minimally dilated. There is hepatic color flow. The direction of portal flow is hepatopetal. There is no demonstrated mass lesion. Gallbladder: Normal distended gallbladder. The gallbladder wall measures 3.0 mm. There is a negative sonographic Ragland''s sign. There is no pericholecystic fluid. There are multiple echogenic structures within the gallbladder, consistent with multiple gallstones. Sludge is also seen within the gallbladder lumen. Common Bile Duct (C.B.D.): The common bile duct is dilated and measures 12.5 mm. I cannot rule out a distal common bile duct stone. Pancreas: Normal size of the head, body and tail of the pancreas. There is normal echogenicity of the pancreas. There is no demonstrated pancreatic mass or cyst. Right Kidney: Normal size of the right kidney. The right kidney measures 11.4 cm x 6.4 cm x 5.9 cm. Normal renal cortex. The right cortex measures 1.8 cm. There is no demonstrated renal mass or cyst. There is no right hydronephrosis. US/Gallbladder IMPRESSION: Hepatomegaly and diffuse fatty infiltration of the liver. Multiple small gallstones with dilated common bile duct. Electronically Signed: Danilo Noonan, at 14:01 EDT , Service support ,
[2020-04-04] MEDS: 0.9% Normal Saline 1,000 ML 1000 ML IV (12:50)
[2020-04-04] MEDS: Ondansetron 4 MG/2 ML Vial IV ×3 (12:50→21:19)
--- NOTE | 2020-04-04 13:15 | ED.VISSUMM ---
- ER Visit Summary Date of Service: 04/04/20 Chief Complaint: Right scapular pain History of Present Illness: The patient is a 29 F who presents with right scapular pain that has been waxing and waning over the past 4 days. Patient describes the pain as throbbing. Patient states it is worse after eating. Patient states approximately 15 to 20 minutes after eating her pain gets worse. Patient describes it as throbbing. Patient states it is worse in her right scapular area. Patient denies any fevers or chills. Patient admits to some nausea and vomiting. Patient denies any dysuria or hematuria. Patient denies any other back or neck pain. Physical Examination: Vital signs are stable. Patient is afebrile. Patient is in no acute distress. Oral mucosa is pink and moist. Neck is supple. Trachea is midline. There is no JVD noted. Heart was regular rate and rhythm. Lungs are clear and equal bilaterally. Abdomen is soft. Bowel sounds are normal. There is no tenderness. There is no rebound or guarding noted. There is no Ragland sign noted. There is no scapular pain with palpation of the right upper quadrant. Skin is warm dry. Cranial nerves II through XII are intact. There are no focal motor or sensory deficits noted. Extremities are intact. There is no calf tenderness or edema. Test Results: CBC shows normal white blood cell count of 6.8. Comprehensive metabolic profile shows a total bilirubin of 5.3, alk phos of 375, ALT of 403 and AST of 236. Lipase was normal. Urinalysis does not show any evidence of urinary tract infection. Serum hCG was negative. Right upper quadrant ultrasound was obtained. There are multiple gallstones and sludge. The gallbladder wall is 3.0 mm. The common bile duct is dilated at 12.5 mm. A distal common bile duct stone cannot be ruled out. This was interpreted by the radiologist and reviewed by myself. Emergency Department Course and Treatment: Patient was given IV fluids. Patient was given a dose of Zofran initially. Patient was still having pain and nausea. Patient was given a dose of morphine and Zofran. Case was discussed with Dr. Doug Spicer. He will take the patient to surgery tonight. He wanted the patient to remain n.p.o. Patient understood and was agreeable with the plan. All questions were answered. Disposition: Admit to hospital Impression: 1. Acute cholecystitis 2. Choledocholithiasis This note was generated with [employer] dictation software. It may contain incorrect words, spelling, and punctuation that were not noted in review of the chart prior to signing ED Disposition - Plan for ED Patient: Disposition: Acute Care Hospital [facility] Diagnosis: Acute cholecystitis due to biliary calculus, Choledocholithiasis Referrals: Care Physician,No Primary [NON-STAFF] -
[2020-04-04 13:24] LABS: Absolute Neutrophil Count 4.9 X10^3/uL (2.0-7.7); Basophil# 0.04 X10^3/uL; Basophil% 0.6 % (0-1); Hematocrit 40.5 % (37-47); Hemoglobin 12.4 g/dL (12.0-15.0); Lymphocyte % 16.3 % (19-41); Mean Corp Hgb Conc 30.6 g/dL (32-36); Mean Corpuscular Hgb 24.6 pg (27.0-32.0); Mean Corpuscular Volume 80.4 fL (81-99); Mean Platelet Vol. 10.8 fl (6.2-12.0); Monocyte# 0.51 X10^3/uL; Monocyte% 7.5 % (0-10); NRBC Flagged by Analyzer 0 % (0-5); Neutrophil # 4.88 X10^3/uL (2.7-7.7); Neutrophil % 72.2 % (47-70); Platelet Count 298 K/mm3 (150-450); Red Blood Count 5.04 M/mm3 (4.2-5.4); White Blood Count 6.8 K/mm3 (4.4-11.0)
[2020-04-04 13:25] LABS: ALB/GLOB Ratio 0.8 RATIO (0.9-2.4); AST(SGOT) 236 U/L (15-37); Alanine Aminotransfer ALT/SGPT 403 U/L (13-56); Albumin, Serum 3.7 g/dL (3.2-5.0); Alkaline Phosphatase 375 U/L (45-117); Anion Gap 5 (5-15); BUN 11 mg/dL (7-18); BUN/Creat Ratio 13.6 RATIO (10-20); Calcium,Total 10.2 mg/dL (8.5-10.1); Chloride 109 mmol/L (98-107); Creatinine, Serum 0.81 mg/dL (0.55-1.02); EST Glomerular Filtration Rate 88 mL/min (>60); Est Glom Filt Rate - Afr Amer 106 mL/min (>60); Estimated Creatinine Clearance 113.51 ml/min; Globulin 4.9 g/dL (2.2-4.2); Glucose 96 mg/dL (74-106); Lipase 130 U/L (73-393); Potassium 3.5 mmol/L (3.5-5.1); Protein, Total 8.6 g/dL (6.4-8.2); Sodium Level 140 mmol/L (136-145)
[2020-04-04 13:27] LABS: Mucous, Urine 0 SEEN /hpf (<or=2+); Red Blood Cells-Urine 0 SEEN /hpf (0-5)
[2020-04-04 13:29] LABS: Color, Urine Amber (Yellow); Glucose, Dipstick Normal (Normal); Ketone-Dipstick 15 mg/dl (Negative); Leukocyte Esterase-Dipstick 100 /ul (Negative); Nitrite-Dipstick Positive (Negative); Occult Blood-Urine 10 /ul (Negative); Protein-Dipstick 15 mg/dl (Negative); Urine Clarity Clear (Clear); Urine Urobilinogen 8 mg/dl (Normal)
[2020-04-04 13:29] LABS: Internal QC Validated? YES +Cl - CLEAR BKGD; Pregnancy, Serum, hCG Quali. NEGATIVE Negative
[2020-04-04 13:30] LABS: Urine Bilirubin Dipstick 6 mg/dL (Negative)
[2020-04-04 13:39] LABS: Bacteria RARE /hpf (None Seen); Squamous Epithelial Cells - UA 5-10 SEEN /hpf (5-10); White Blood Cells 0-5 SEEN /hpf (0-5)
[2020-04-04] MEDS: Morphine 4 MG/ML Syringe IV (14:12)
--- NOTE | 2020-04-04 15:04 | RAD_ITS ---
CLINICAL HISTORY: Female, 29 years old. Abdominal pain PROCEDURE: CHOLANGIOGRAM - intraoperative FLUOROSCOPY TIME (if supplied): (190 seconds) minutes/seconds TECHNIQUE: (All elements of maximal sterile barrier technique followed, including US elements as applicable) 190 seconds of fluoroscopy of the abdomen was utilized and operating room during Intraop Cholangiogram and 8 images made of for interpretation. FINDINGS: A cannula seen within the cystic duct remnant. Obstruction is seen at the ampulla. This was treated with balloon sphincterotomy. RAD/Cholangiogram/ O R,Initial IMPRESSION: Obstruction at the ampulla treated with balloon sphincterotomy. Electronically Signed: Wild Arroyo MD at 9:18 EDT Tel , Service support ,
--- NOTE | 2020-04-04 15:49 | PCM.HP.STD ---
Problem List (1) Chronic cholecystitis due to cholelithiasis with choledocholithiasis Status: Chronic (2) Morbid obesity Status: Acute (3) Hidradenitis suppurativa Status: Acute History of Present Illness Date of Admission: 04/04/20 The patient is a 29 year old F who presents to the emergency room with complaint of right scapular pain. She also notes discoloration of her stool being pharmacist manager in color. She also notes dark urine. She noted the dark urine 3 weeks ago. She was placed on antibiotics for skin infections doxycycline but stopped that 3 weeks ago thinking the 2 were related. Her primary care physician Dr. Tatum but she has not seen him yet for this issue. I was contacted through the emergency room instructed me that her white count was 6.8 hemoglobin 12.4 medical at 40.5 platelet count 298,000 with 72% segs. Her calcium is elevated at 10.2. Total bilirubin 5.3. AST 236. ALT 403. Alkaline phosphatase 375. Albumin 3.7. test was negative. Her urine showed nitrite positive. 0-5 white cells. Rare bacteria. A gallbladder ultrasound was obtained showing hepatomegaly and diffuse fatty infiltration of the liver. Multiple gallstones within the gallbladder. Dilated common bile duct. The common bile duct measures 12.5 mm. A distinct common bile duct stone by report not identified. The patient is 3 months . She delivered twins. She states that she always has skin scores over her body and she has for most of her life. She states that her skin is never clear Past Medical History Past Medical History (Chronic Problems): Chronic Problems (Last Updated 12/26/19 @ 07:[address] Parisa Guerra MD) Chronic cholecystitis due to cholelithiasis with choledocholithiasis (Chronic) Medical History: Medical History (Last Updated 12/26/19 @ 07:[address] Parisa Guerra MD) History of asthma Z87.09 Allergies No Known Allergies Allergy (Verified 04/04/20 12:14) Home Medications: Ambulatory Orders Medication Instructions Recorded Escitalopram Oxalate [Lexapro] 10 mg PO DAILY #30 tab 12/29/19 Acetaminophen [Tylenol] 975 mg PO PRN 04/04/20 Surgical History: Surgical History (Last Updated 12/26/19 @ 07:[address] Parisa Guerra MD) H/O endoscopy Z98.890 Surgical History: - - for delivery of twins Psychiatric History: Anxiety Smoking Status: Never smoker Alcohol: None Drugs: None Review of Systems Constitutional: Denies: Fever, Night Sweats HEENT: Denies: Difficulty Swallowing Cardiovascular: Denies: Chest Pain Respiratory: Reports: - - Right scapular pain. Denies: Cough Gastrointestinal: Denies: Abdominal Pain Genitourinary: Reports: - - Dark urine. Denies: Dysuria Skin: Reports: Rash, - - Couple areas of erythematous rash pustules and areas of self excoriation Psychiatric: Reports: Anxiety Endocrine: Reports: - - Slight weight loss VTE Information - Inpt Only VTE Present on Admission: No Patient Problems: Active and Suspected Problems (Last Updated 12/26/19 @ 07:[address] Parisa Guerra MD) Acute cholecystitis due to biliary calculus (Acute) Morbid obesity (Acute) Hidradenitis suppurativa (Acute) - Physical Exam Vitals/I&O's: Vital Signs Temp Pulse Resp BP Pulse Ox 97.4 F L 98 16 141/82 H 99 04/04/20 15:33 04/04/20 15:33 04/04/20 15:33 04/04/20 15:33 04/04/20 15:33 Oxygen Delivery Method Room Air Weight: 320 lb 15.889 oz Body Mass Index (BMI) 44.7 Intake and Output for Last 24 Hours 04/02/20 04/03/20 04/04/20 23:59 23:59 23:59 Intake Total 1000 / 1000 Balance 1000 / 1000 General: Alert, Oriented x3, Cooperative, No apparent distress HEENT: Atraumatic Oral: Moist Mucosa Neck: Supple Lungs: Clear to auscultation, Normal air movement Cardiovascular: Regular rate, Regular Rhythm Abdomen: Bowel Sounds Present, Soft, Non Tender, - - Multiple areas of punctate pustules and rash throughout her trunk and abdomen with areas of apparent self excoriation Extremities: No Calf Tenderness Skin: Excoriated Neurological: - - Normal cognition Psych/Mental Status: Normal Affect Laboratory Results 04/04/20 13:00: WBC 6.8, RBC 5.04, Hgb 12.4, Hct 40.5, MCV 80.4 L, MCH 24.6 L, MCHC 30.6 L, RDW Std Deviation 49.0 H, RDW Coeff of Christine 17.0 H, Plt Count 298, MPV 10.8, Immature Gran % (Auto) 0.400, Neut % (Auto) 72.2 H, Lymph % (Auto) 16.3 L, [place] % (Auto) 7.5, Eos % (Auto) 3.0, Baso % (Auto) 0.6, Absolute Neuts (auto) 4.9, Absolute Lymphs (auto) 1.10, Nucleated RBC % 0 04/04/20 13:00: Sodium 140, Potassium 3.5, Chloride 109 H, Carbon Dioxide 26.0, Anion Gap 5, BUN 11, Creatinine 0.81, Estim Creat Clear Calc 113.51, Est GFR (MDRD) Af Amer 106, Est GFR (MDRD) Non-Af 88, BUN/Creatinine Ratio 13.6, Glucose 96, Calcium 10.2 H, Total Bilirubin 5.30 H, AST 236 H, ALT 403 H, Alkaline Phosphatase 375 H, Total Protein 8.6 H, Albumin 3.7, Globulin 4.9 H, Albumin/Globulin Ratio 0.8 L, Lipase 130 04/04/20 13:00: Serum , Qual NEGATIVE 04/04/20 13:15: Urine Color Marlin, Urine Clarity Clear, Urine pH 5.0, Ur Specific [place] 1.020, Urine Protein 15 H, Urine Glucose (UA) Normal, Urine Ketones 15 H, Urine Occult Blood 10 H, Urine Nitrite Positive H, Urine Bilirubin 6 H, Urine Urobilinogen 8 H, Ur Leukocyte Esterase 100 H, Urine RBC 0 SEEN, Urine WBC 0-5 SEEN, Ur Squamous Epith Cells 5-10 SEEN, Urine Bacteria RARE, Urine Mucus 0 SEEN Assessment/Plan All Active Problems (Last Updated 12/26/19 @ 07:[address] Parisa Guerra MD) 34 weeks gestation of (Acute) Twin (Acute) Pre-eclampsia, severe (Acute) Obesity affecting (Acute) Gestational hypertension (Acute) Acute cholecystitis due to biliary calculus (Acute) Morbid obesity (Acute) Hidradenitis suppurativa (Acute) 29-year-old female with clinical signs and symptoms consistent with chronic cholecystitis cholelithiasis and choledocholithiasis with common bile duct obstruction. I have proposed for her laparoscopic cholecystectomy with cholangiography. I have further discussed the potential of a laparoscopic common bile duct exploration with possible laparoscopic placement of a choledocho stent. She has had an opportunity to ask and have questions answered. I requested a large time during routine hours. I was instructed that only after hours time is available. We will proceed as timing permits. She is additionally aware that if treatment of the suspected common bile duct stone cannot be definitively managed that she may require a postoperative ERCP. I have also briefly discussed that procedure with her. She has had an opportunity to ask and have questions answered. She is aware of the COVID-19 pandemic. She is aware that the [facility] is reporting a low local incidence. Doug Spicer M.D., F.A.C.S.
--- NOTE | 2020-04-04 17:05 | GALL_PTH ---
PATIENT: MYRA FERRERA LOC: [facility] [place] U#:[id number] AGE/SX: 29/F ROOM: RE04/04/[address]: Dr. Doug Spicer MD : 1990 BED: DIS: 04/05/2020 SPEC #: [id number] RECD: 04/07/20 09:26 STATUS: MARIA FERNANDA CATIA #: [id number] ISMAEL: 04/04/20 17:[address]: Doug Spicer DEPT: SURGICAL PATHOLOGY RECD BY: Thao Pascual ENTERED: 04/07/20 11:00 SP TYPE: MARCOS MAYES DR: Dr. Oh Tatum MD Tissues: Gallbladder, NOS Procedures: Surgery Specimen Level III HEADER OPERATION: Laparoscopic cholecystectomy, IOC, common duct exploration PRE-OP DIAGNOSIS: Chronic cholecystitis due to cholelithiasis with choledocholithiasis TISSUE SUBMITTED: Gallbladder MICROSCOPIC DIAGNOSIS Gallbladder, cholecystectomy: Cholesterolosis, acute and chronic cholecystitis and cholelithiasis. Benign pericystic lymph node. AM:ysabel 04/08/20 MICROSCOPIC DESCRIPTION Slides are reviewed. GROSS DESCRIPTION Received is one container labeled with the patient's name and designated gallbladder. The specimen consists of a gallbladder measuring 8.5 x 3.5 x 3.2 cm. The external surface is smooth and glistening. Focally, it is granular, hemorrhagic and contains cautery artifact. The lumen of the gallbladder contains yellow-green mucoid bile and multiple mulberry yellow stones ranging in size from 0.3 to 0.6 cm. The mucosa is bile-stained and without any mass lesions. The gallbladder wall averages 0.5 cm in thickness and is free of mass lesions. A pericystic nodule measuring 6 mm is noted. Silhouette Artist sections of the gallbladder submitted in one cassette. / AM:ysabel 04/07/20 TC:2 CPT: 01099
[2020-04-04] MEDS: Bupivacaine Mpf 0.5% 30 ML VIAL (17:40)
--- NOTE | 2020-04-04 19:28 | DCINST_ITS ---
Discharge Diet: Light diet - advance as tolerated - if you have questions about your diet instructions, please talk to you doctor. Discharge Activity: May Not Drive - for 3-5 days or while taking narcotic pain medicine. May shower in (days): 1 Lifting Restrictions: 10 pounds Call your doctor if your incision/area has: Continuous Slow Oozing, Sudden Increased Bleeding, Increased Pain/ Swelling, Increased Redness, Foul Smelling Discharge Call your doctor if you observe: Fever of 101 or Higher Suture Line Care: Avoid Pulling/Pushing, Avoid Pinching/Bending Additional Dressing/Incision Instructions:: Change or remove plastic dressing in 3 days. Leave steri-strips in place for 1 week. You may change the drain site dressing daily or as needed to keep clean and dry. Apply dry gauze and tape as needed. You may shower once the drainage stops. Allergies/Adverse Reactions: Allergies No Known Allergies Allergy (Verified 04/04/20 12:14) Medications to take at Discharge Escitalopram Oxalate [Lexapro] 10 mg PO DAILY #30 tab 12/29/19 Hydrocodone Bitart/Apap 5-325 [[place] 5MG-325MG] 1 tablet PO Q6H PRN PRN 2 Days #5 tablet 04/05/20 The following prescriptions were given: Hydrocodone Bitart/Apap 5-325 [[place] 5MG-325MG] 1 tablet PO Q6H PRN PRN 2 Days #5 tablet PRN Reason: Pain Transmission Status: Received by [facility] #[id number] Primary Care Physician: Care Physician,No Primary [NON-STAFF] - Test Results: Test results from this visit will be discussed in further detail at your follow- up appointment, if applicable. Please Follow Up With: Doug Spicer MD - [phone] When: Call to make an appointment to be seen in about 10 days.
--- NOTE | 2020-04-04 19:32 | OP.PCM_ITS ---
Problem List (1) Chronic cholecystitis due to cholelithiasis with choledocholithiasis Status: Chronic (2) Morbid obesity Status: Acute (3) Hidradenitis suppurativa Status: Acute Report of Operation Date of Procedure: 04/04/20 Pre-Operative Diagnosis: Chronic cholecystitis cholelithiasis and choledocholithiasis Post-Operative Diagnosis: Same Surgery/Procedure Performed:: Scopic cholecystectomy with cholangiograms. Laparoscopic common bile duct exploration with ampullary 8 x 40 mm balloon dilatation and subsequent placement of Fanilli stent, MARCIANO drainage Description of Surgical Findings:: Timeout and informed consent was obtained. 29-year-old female was taken to the operating placed supine on the table underwent general endotracheal intubation and anesthesia. Weightbase she is received 3 g of Ancef intravenously. The abdomen was sterilely prepped and draped. She had multiple areas of superficial pustules and excoriations. Ioban draping was used. 0.5% Marcaine was used as a local anesthetic. Throughout the procedure total 30 cc was used. Skin sites were pre-anesthetized. A supraumbilical vertical incision was created sharp dissection carried down through the subcutaneous tissue. Holding sutures of 0 Vicryl placed. Varies needle inserted. Saline drop test performed. The abdome n was insufflated with CO2 to a pressure of 15 mmHg pressure. 10 mm trocar was inserted and secured there with 0 Vicryl. The abdomen was inspected. There was an edematous thick-walled gallbladder that was tense. There was moderate fatty change of the liver. 5 mm trochars were placed in the epigastric mid abdomen right upper quadrant. The gallbladder was aspirated with an aspirating trocar decompressed and then a grasper with teeth was used to distract the gallbladder. Tedious blunt dissection was instituted at the infundibulum until clearly the cystic duct and cystic artery was identified. An anterior and posterior branch of the cystic artery identified. These were secured with 2 hemo-lock clips proximally and 1 distally prior to transecting them. The cystic duct was nicely clearly identified a hemo-lock clip was placed on the cystic duct incision made the cystic duct and a cholangiogram cath was inserted and fluoroscopically control cholangiograms were obtained. This documented good positioning in the cystic duct there was no flow distally consistent with multiple stones. I then placed a 5 mm trocar in the right upper quadrant at the site of the cholangiogram site. I then ensued inserted a double lumen cholangiogram catheter and used an 035 Glidewire. I used fluoroscopy to place the Glidewire into the small bowel. I then exchanged out the cholangiogram catheter for a 8 x 40 mm balloon. Balloon angioplasty of the ampulla was performed. In addition the patient received a milligram of glucagon. The balloon was subsequently removed after 2 minutes of insufflation time. The double-lumen clinic catheter was reinserted and fluoroscopy demonstrated contrast now getting into the small bowel but there was a suggestion of residual stone. So I left the wire in place removed the double-lumen cholangiogram catheter inserted the Fanilli. I shot another cholangiogram through the side-port. I did get access to the small bowel. The stent was deployed. A completion view was obtained through the deployment device suggesting that the stent was in the proximal in the small bowel and partly within the common bile duct. There was now flow into the small bowel. There was a suggestion of possible retained stone distally adjacent to the stent within the common bile duct. Subsequently the point device was removed. 2 hemo-lock clips were placed on the cystic duct stump prior to transecting it. The gallbladder was tediously dissected free from the liver bed. It was noted to be partially intrahepatic and dissection was tedious. At the completion it was immediately placed in a retrieval bag. There is no obvious spillage of stones. The right upper quadrant was irrigated and aspirated free and extra electrocautery was used for hemostasis of the liver bed. 2 pieces of fibrillar was placed in the liver bed to assure hemostasis. A 15 round MARCIANO drain was short in length and then placed to the subhepatic space and exited through the right upper quadrant port site. It was secured the skin with interrupted 3-0 nylon. The liver bed again inspected and was noted to be hemostatic. The abdomen was allowed to deflate through the antiviral port. Trochars were removed. The gallbladder was exited the umbilicus. The fascia at the umbilicus approximated with interrupted 0 Vicryl [id number] suture. Skin edges approximate interrupted 4-0 Monocryl subdermal stitches. Steri-Strips Telfa OpSite dressings applied. Sponge and instrument and needle counts were reported the surgeon to be correct. Blood loss was minimal. Specimens gallbladder. Drains 15 round MARCIANO drain to the right subhepatic space. Indwelling common bile duct stent remaining. Blood loss minimal. Patient was taken to the recovery area in satisfactory addition without apparent complication. Doug Spicer M.D., F.A.C.S. Type of Anesthesia:: General Anesthesiologist: Germán Omalley
[2020-04-04] MEDS: Lactated Ringers 1,000 ML 100 ML IV (20:06)
[2020-04-04] MEDS: Acetaminophen 325 MG Tablet 650 MG PO (21:15)
[2020-04-04] MEDS: oxyCODONE 5 MG Tablet PO (21:15)
[2020-04-04] MEDS: 0.9% Saline Lock 10 ML Syringe IV (21:19)
[2020-04-04] MEDS: Cefazolin 2 GM in 0.9% Normal Saline 100 ML IV (23:44)
--- NOTE | 2020-04-05 01:25 | NURSING ---
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
[2020-04-05 01:40] VITALS: BP 123/73; PULSE 90; RESP 16; TEMP 37.4; O2SAT 95
[2020-04-05] MEDS: oxyCODONE 5 MG Tablet PO ×2 (01:42→05:40)
[2020-04-05] MEDS: Acetaminophen 325 MG Tablet 650 MG PO ×2 (03:33→09:12)
[2020-04-05] MEDS: Cefazolin 2 GM in 0.9% Normal Saline 100 ML IV (05:40)
[2020-04-05] MEDS: Lactated Ringers 1,000 ML 70 ML IV (05:42)
[2020-04-05 05:49] VITALS: BP 113/67; PULSE 90; RESP 16; TEMP 36.6; O2SAT 97
--- NOTE | 2020-04-05 06:16 | PCM.PN.SRG ---
Patient Problems: Active and Suspected Problems (Last Updated 12/26/19 @ 07:[address] Parisa Guerra MD) Acute cholecystitis due to biliary calculus (Acute) Morbid obesity (Acute) Hidradenitis suppurativa (Acute) Subjective: Patient is feeling reasonably good status post laparoscopic cholecystectomy with cholangiography and common bile duct exploration with stent placement. Mild nausea last night but resolved. Abdomen is sore but improved. No flatus. No current nausea. - Physical Exam Vitals/I&O's: Vital Signs Temp Pulse Resp BP Pulse Ox 98 F 90 16 113/67 97 04/05/20 05:49 04/05/20 05:49 04/05/20 05:49 04/05/20 05:49 04/05/20 05:49 Oxygen Flow Rate (L/min) 2 Oxygen Delivery Method Room Air Weight: 327 lb Body Mass Index (BMI) 45.6 Intake and Output for Last 24 Hours 04/03/20 04/04/20 04/05/20 23:59 23:59 23:59 Intake Total 3096.33 / 3096.33 1274 / 1274 Output Total 250 / 250 1520 / 1520 Balance 2846.33 / 2846.33 -246 / -246 Lungs: Clear to auscultation Abdomen: Soft, Hypoactive Bowel Sounds, - - MARCIANO drain minimal amount of light bloody fluid Laboratory Results 04/04/20 13:00: WBC 6.8, RBC 5.04, Hgb 12.4, Hct 40.5, MCV 80.4 L, MCH 24.6 L, MCHC 30.6 L, RDW Std Deviation 49.0 H, RDW Coeff of Christine 17.0 H, Plt Count 298, MPV 10.8, Immature Gran % (Auto) 0.400, Neut % (Auto) 72.2 H, Lymph % (Auto) 16.3 L, [place] % (Auto) 7.5, Eos % (Auto) 3.0, Baso % (Auto) 0.6, Absolute Neuts (auto) 4.9, Absolute Lymphs (auto) 1.10, Nucleated RBC % 0 04/04/20 13:00: Sodium 140, Potassium 3.5, Chloride 109 H, Carbon Dioxide 26.0, Anion Gap 5, BUN 11, Creatinine 0.81, Estim Creat Clear Calc 113.51, Est GFR (MDRD) Af Amer 106, Est GFR (MDRD) Non-Af 88, BUN/Creatinine Ratio 13.6, Glucose 96, Calcium 10.2 H, Total Bilirubin 5.30 H, AST 236 H, ALT 403 H, Alkaline Phosphatase 375 H, Total Protein 8.6 H, Albumin 3.7, Globulin 4.9 H, Albumin/Globulin Ratio 0.8 L, Lipase 130 04/04/20 13:00: Serum , Qual NEGATIVE 04/04/20 13:15: Urine Color [place], Urine Clarity Clear, Urine pH 5.0, Ur Specific [place] 1.020, Urine Protein 15 H, Urine Glucose (UA) Normal, Urine Ketones 15 H, Urine Occult Blood 10 H, Urine Nitrite Positive H, Urine Bilirubin 6 H, Urine Urobilinogen 8 H, Ur Leukocyte Esterase 100 H, Urine RBC 0 SEEN, Urine WBC 0-5 SEEN, Ur Squamous Epith Cells 5-10 SEEN, Urine Bacteria RARE, Urine Mucus 0 SEEN Current Medications Acetaminophen (Tylenol) 650 mg PO Q6H PRN PRN PRN Reason: Pain Score 1-10/10 Last Admin: 04/05/20 03:33 Dose: 650 mg Documented by: Enoxaparin Sodium (Lovenox) 40 mg SC DAILY [facility] Lactated Ringer's () 1,000 mls @ 70 mls/hr IV .[id number] Last Infusion: 04/05/20 05:42 Dose: 0 mls/hr Documented by: Sodium Chloride () 250 mls @ 15 mls/hr IV .[id number] PRN PRN Reason: Saline Flush Influenza Virus Vaccine Quadrival (Flucelvax /Fluzone ) 0.5 ml IM .ONCE ONE Stop: 04/05/20 10:01 Morphine Sulfate () 2 - 4 mg IV Q1H PRN PRN PRN Reason: Pain Score 1-10/10 Morphine Sulfate () 2 - 4 mg IV Q1H PRN PRN PRN Reason: Pain Score 1-10/10 Ondansetron HCl (Zofran) 4 mg IV Q8H PRN PRN PRN Reason: NAUSEA Last Admin: 04/04/20 21:19 Dose: 4 mg Documented by: Oxycodone HCl (Oxyir) 5 - 10 mg PO Q4H PRN PRN PRN Reason: Pain Score 6-10/10 Last Admin: 04/05/20 05:40 Dose: 10 mg Documented by: Sodium Chloride () 10 - 40 ml IV UD PRN PRN Reason: SALINE FLUSH Last Admin: 04/04/20 21:19 Dose: 10 ml Documented by: Medical Necessity - Tobacco Use Smoking Status: Former smoker Tobacco Use: Cigarettes Assessment/Plan All Active Problems (Last Updated 12/26/19 @ 07:[address] Parisa Guerra MD) 34 weeks gestation of (Acute) Twin (Acute) Pre-eclampsia, severe (Acute) Obesity affecting (Acute) Gestational hypertension (Acute) Acute cholecystitis due to biliary calculus (Acute) Morbid obesity (Acute) Hidradenitis suppurativa (Acute) MARCIANO drain was removed for today. Sterile dressings applied. Anticipate discharge later this morning. I have discussed with the patient plans for post discharge ERCP to follow-up on her biliary stent placement and the possibility of any retained common bile duct stones. She is aware that Dr. Hayden Hodges will help us assist with that. She has had an opportunity to ask and have questions answered. She will assist with scheduling office follow-up. Doug Spicer M.D., F.A.C.S.
[2020-04-05 06:21] LABS: Absolute Neutrophil Count 6.7 X10^3/uL (2.0-7.7); Basophil# 0.03 X10^3/uL; Basophil% 0.3 % (0-1); Hematocrit 37.6 % (37-47); Hemoglobin 11.6 g/dL (12.0-15.0); Lymphocyte % 12.8 % (19-41); Mean Corp Hgb Conc 30.9 g/dL (32-36); Mean Platelet Vol. 10.5 fl (6.2-12.0); Monocyte# 0.65 X10^3/uL; Monocyte% 7.6 % (0-10); NRBC Flagged by Analyzer 0 % (0-5); Neutrophil # 6.69 X10^3/uL (2.7-7.7); Platelet Count 306 K/mm3 (150-450); RBC Distribution Width CV 17.3 % (11.6-14.6); Red Blood Count 4.64 M/mm3 (4.2-5.4); White Blood Count 8.6 K/mm3 (4.4-11.0)
[2020-04-05 06:47] LABS: ALB/GLOB Ratio 0.7 RATIO (0.9-2.4); AST(SGOT) 226 U/L (15-37); Alanine Aminotransfer ALT/SGPT 393 U/L (13-56); Albumin, Serum 3.1 g/dL (3.2-5.0); Alkaline Phosphatase 357 U/L (45-117); Anion Gap 4 (5-15); BUN 7 mg/dL (7-18); BUN/Creat Ratio 9.5 RATIO (10-20); Calcium,Total 9.1 mg/dL (8.5-10.1); Chloride 112 mmol/L (98-107); Creatinine, Serum 0.74 mg/dL (0.55-1.02); EST Glomerular Filtration Rate 98 mL/min (>60); Est Glom Filt Rate - Afr Amer 119 mL/min (>60); Estimated Creatinine Clearance 124.25 ml/min; Globulin 4.6 g/dL (2.2-4.2); Glucose 101 mg/dL (74-106); Potassium 4.2 mmol/L (3.5-5.1); Protein, Total 7.7 g/dL (6.4-8.2); Sodium Level 141 mmol/L (136-145)
[2020-04-05 09:02] VITALS: BP 110/64; PULSE 88; RESP 18; TEMP 36.6; O2SAT 96
[2020-04-05] MEDS: Enoxaparin 40 MG/0.4 ML Syringe SC (09:13)
== END 2020-04-05 12:26 | disposition home or self-care (01) ==
LOC: ED 14:57 → SDC 15:11 → MS3 15:17
PROVIDERS: Emergency Provider Emergency Medicine; PCP Family Medicine; Visit Provider Surgery
PROC: (CPT 47610; principal; 2020-04-04 16:45)
DX: K80.12 Calculus of gallbladder with acute and chronic cholecystitis without obstruction (principal); E66.01 Morbid (severe) obesity due to excess calories; L73.2 Hidradenitis suppurativa; K76.0 Fatty (change of) liver, not elsewhere classified; F41.9 Anxiety disorder, unspecified; Z79.899 Other long term (current) drug therapy; Z68.41 Body mass index [BMI] 40.0-44.9, adult; Z23 Encounter for immunization
CPT/HCPCS: 00790; 47564; 47999; 36415; 74300; 76000; 76705; 80053; 81001; 83690; 84703; 85025; 88304; 99251; 99284; J7030; J7120; 90686; A4216; C1725; C1769; G0463; J1610; J2405

== ENCOUNTER 2020-04-24 07:26 | Day surgery (SDC) | payer OTHER, SELFPAY ==
[2020-04-04 21:01] VITALS: BMI 45.6
[2020-04-24] VITALS (8 sets, daily range): BP systolic 113–137; BP diastolic 68–84; PULSE 71–87; RESP 16–18; TEMP 36.6–36.8; O2SAT 96–100; BMI 46.3
[2020-04-24 08:06] LABS: Internal QC Validated? YES +Cl - CLEAR BKGD; Pregnancy, Urine Negative Negative
--- NOTE | 2020-04-24 08:06 | HP.PCM_ITS ---
Problem List (1) Acute cholecystitis due to biliary calculus Status: Acute (2) Chronic cholecystitis due to cholelithiasis with choledocholithiasis Status: Chronic History of Present Illness Date of Admission: 04/24/20 The patient is a 30 year old F who had laparoscopic cholecystectomy with common bile duct exploration and placement of stent. Patient has been doing well since surgery. Past Medical History Past Medical History (Chronic Problems): Chronic Problems (Last Updated 12/26/19 @ 07:[address] Parisa Guerra MD) Chronic cholecystitis due to cholelithiasis with choledocholithiasis (Chronic) Medical History: Medical History (Last Updated 12/26/19 @ 07:[address] Parisa Guerra MD) History of asthma Z87.09 Allergies No Known Allergies Allergy (Verified 04/15/20 12:47) Home Medications: Ambulatory Orders Medication Instructions Recorded Escitalopram Oxalate [Lexapro] 10 mg PO DAILY #30 tab 12/29/19 Surgical History: Surgical History (Last Updated 12/26/19 @ 07:[address] Parisa Guerra MD) H/O endoscopy Z98.890 Surgical History: - - for delivery of twins Psychiatric History: Anxiety Smoking Status: Former smoker Tobacco Use: Non-smoker Review of Systems Constitutional: Denies: Anorexia, Fever Eyes: Denies: Blurred vision Respiratory: Denies: Cough, Shortness of Breath, Shortness of breath at rest Gastrointestinal: Denies: Abdominal Pain, Nausea, Vomiting Skin: Denies: Jaundice Psychiatric: Denies: Anxiety Hematologic/ Lymphatic: Denies: Anemia VTE Information - Inpt Only VTE Present on Admission: No VTE Mechan Device Prophylaxis: SCD's - Physical Exam Vitals/I&O's: Body Mass Index (BMI) 45.6 General: Alert, Oriented x3, Cooperative Lungs: Normal air movement Cardiovascular: Regular rate, Regular Rhythm Abdomen: Soft, Non Tender, Non-Distended Laboratory Results 04/24/20 07:50: Urine Test Negative Assessment/Plan All Active Problems (Last Updated 12/26/19 @ 07:[address] Parisa Guerra MD) 34 weeks gestation of (Acute) Twin (Acute) Pre-eclampsia, severe (Acute) Obesity affecting (Acute) Gestational hypertension (Acute) Acute cholecystitis due to biliary calculus (Acute) Morbid obesity (Acute) Hidradenitis suppurativa (Acute) 30-year-old female with biliary stent and history of choledocholithiasis 1. Plan for ERCP today to remove the biliary stent and sweep the duct to ensure that there is no remaining choledocholithiasis. I discussed ERCP with the patient during her last office visit including the risks of bleeding, infection, perforation of the bile duct or bowel, pancreatitis. Patient understands and is willing to proceed. Abran Hodges MD Pager: [facility] [address] [place] [address] Office:
[2020-04-24] MEDS: Lactated Ringers 1,000 ML 100 ML IV (08:20)
--- NOTE | 2020-04-24 08:40 | RAD_ITS ---
STUDY: ERCP. REASON FOR EXAM: Female, 30 years old. ABD PAIN. BALLOONED THE DUCT 3 TIMES. NO STONES CAME THRU FLUOROSCOPY TIME (if supplied): ( 65 seconds ) minutes/seconds. 2 images were obtained. TECHNIQUE: An ERCP was performed by the surgeon. Imaging was submitted. COMPARISON: None. FINDINGS: Mildly dilated common bile duct. No intraluminal filling defect is seen. RAD/ERCP Biliary Only IMPRESSION: Mild dilatation of the common bile duct. Electronically Signed: Danilo Noonan, at 10:34 EDT , Service support ,
--- NOTE | 2020-04-24 09:47 | OP.ERCP_ITS ---
Patient Name: Rose Mary Johnson Procedure Date: 04/24/2020 8:35 AM Date of : 1990 Age: 30 Procedure: ERCP Indications: Bile duct stone(s) Providers: Abran Hodges MD Referring MD: Oh Tatum Medicines: Monitored Anesthesia Care Patient Profile: This is a 30 year old female. Refer to note in patient chart for documentation of history and physical. Complications: No immediate complications. Estimated blood loss: Minimal. Procedure: Pre-Anesthesia Assessment: - Prior to the procedure, a History and Physical was performed, and patient medications and allergies were reviewed. The patient's tolerance of previous anesthesia was also reviewed. The risks and benefits of the procedure and the sedation options and risks were discussed with the patient. All questions were answered, and informed consent was obtained. Prior Anticoagulants: The patient has taken no previous anticoagulant or antiplatelet agents. After reviewing the risks and benefits, the patient was deemed in satisfactory condition to undergo the procedure. After obtaining informed consent, the scope was passed under direct vision. Throughout the procedure, the patient's blood pressure, pulse, and oxygen saturations were monitored continuously. The duodenoscope was introduced through the mouth, and advanced to the duodenum and used to inject contrast into the bile duct and ventral pancreatic duct. The ERCP was accomplished without difficulty. The patient tolerated the procedure well. Scope In: 9:24:25 AM Scope Out: 9:31:36 AM Total Procedure Duration Time 0 hours 7 minutes 11 seconds Findings: The major papilla was normal. Stent had been dislodged. A 0.035 inch x 260 cm straight Dreamwire was passed into the biliary tree. The sphincterotome was passed over the guidewire and the bile duct was then deeply cannulated. Contrast was injected. The main bile duct was diffusely dilated. Biliary sphincterotomy was made with a monofilament sphincterotome using ERBE electrocautery. The sphincterotomy oozed blood. The biliary tree was swept with a 12 mm balloon starting at the bifurcation. Sludge was swept from the duct. Impression: - The major papilla appeared normal. - The entire main bile duct was dilated. - A biliary sphincterotomy was performed. - The biliary tree was swept and sludge was found. Recommendation: - Discharge patient to home (ambulatory). - Resume previous diet. - Continue present medications. - Watch for pancreatitis, bleeding, perforation, and cholangitis. Procedure Code(s): --- Professional --- 15219, Endoscopic retrograde cholangiopancreatography (ERCP); with removal of calculi/debris from biliary/pancreatic duct(s) 31525, 51, Endoscopic retrograde cholangiopancreatography (ERCP); with sphincterotomy/papillotomy Diagnosis Code(s): --- Professional --- K80.50, Calculus of bile duct without cholangitis or cholecystitis without obstruction K83.8, Other specified diseases of biliary tract CPT copyright 2017 [employer]. All rights reserved. The codes documented in this report are preliminary and upon cotton header review may be revised to meet current compliance requirements. Abran Hodges MD 04/24/2020 9:46:56 AM This report has been signed electronically. Number of Addenda: 0 Note Initiated On: 04/24/2020 8:35 AM
--- NOTE | 2020-04-24 09:47 | OP.CCLET_ITS ---
04/24/2020 Oh Tatum Re : ERCP procedure for Rose Mary Johnson Bakari Tatum This procedure was performed on April. My impressions and recommendations are as follows: Impressions : - The major papilla appeared normal. - The entire main bile duct was dilated. - A biliary sphincterotomy was performed. - The biliary tree was swept and sludge was found. Recommendations : - Discharge patient to home (ambulatory). - Resume previous diet. - Continue present medications. - Watch for pancreatitis, bleeding, perforation, and cholangitis. My findings are described in the full procedure note, which is enclosed. If I can be of further assistance, please feel free to contact me at Doctor phone number(s): , Work: . Sincerely, Abran Hodges MD 04/24/2020 9:46:56 AM This report has been signed electronically.
== END 2020-04-24 11:01 | disposition home or self-care (01) ==
LOC: EN 07:27 → AC 07:28
PROVIDERS: Anesthesiology; PCP Family Medicine; Referring Provider Family Medicine; Visit Provider Surgery
PROC: (CPT 43260; principal; 2020-04-24 08:10)
DX: K80.50 Calculus of bile duct without cholangitis or cholecystitis without obstruction (principal); F41.9 Anxiety disorder, unspecified; Z79.899 Other long term (current) drug therapy; Z87.891 Personal history of nicotine dependence; Z20.828 Contact with and (suspected) exposure to other viral communicable diseases
CPT/HCPCS: 43262; 43264; 74328; 76000; 81025; 87635; C9803; J7120; J2405; U0003